=== PATIENT | female | born 1980 | race African-American/Black ===

== ENCOUNTER 2022-05-21 08:01 | Emergency (ER) | payer BC, SELFPAY | END 2022-05-21 09:02 | disposition home or self-care (01) | LOC: CSHERS 08:01 | DX: S93.402A Sprain of unspecified ligament of left ankle, initial encounter (principal); X50.1XXA Overexertion from prolonged static or awkward postures, initial encounter ==

== ENCOUNTER 2022-12-17 13:33 | Outpatient (CLI) | payer MEDICAID | END 2022-12-17 13:34 | disposition home or self-care (01) | LOC: CSHMAMMO 13:33 | PROVIDERS: ATTEND Nurse Practitioner Women's Health | DX: Z12.31 Encounter for screening mammogram for malignant neoplasm of breast (principal) | CPT/HCPCS: 77067 ==

== ENCOUNTER 2023-03-08 19:25 | Emergency (ER) | payer BC, MEDICAID ==
[2023-03-08] MEDS ORDERED: Ketorolac Tromethamine 30 MG/ML VIAL ONE (21:16)
== END 2023-03-08 22:15 | disposition home or self-care (01) ==
LOC: CSHERS 19:25
DX: R60.0 Localized edema (principal)
CPT/HCPCS: 96372; J1885

== ENCOUNTER 2023-04-16 08:53 | Emergency (ER) | payer BC, SELFPAY ==
[2023-04-16 09:36] LABS: Bilirubin Neg (Negative); Blood, Urine 25 (Negative); Glucose, Urine (Dipstick) Normal (Negative); Ketone, Urine Negative (Negative); Leukocyte 500 (Negative); Nitrite Negative (Negative); Protein, Urine (Dipstick) 15 mg/dl (Neg-Trace); Specific Gravity, Urine 1.015 (1.005-1.030); Urobilinogen Normal mg/dL (Less than 2); pH, Urine 6.5 (5.0-9.0)
[2023-04-16 09:37] LABS: Clarity Clear (Clear); Pregnancy Test - Urine (BHCG) Negative (Negative); Pregu Control Background? CLEAR/WHITE (CLR/WHITE); Pregu Control Bar Appear? YES (CONTROL BAR); Specific Gravity 1.015 (1.002-1.036)
[2023-04-16 09:41] LABS: #Monocytes 0.5 10x3/uL (0.0-1.1); #Neutrophils 3.6 10x3/uL (1.5-8.4); %Basophils 0.6 % (0.0-2.0); %Eosinophils 0.5 % (0.0-6.0); %Lymphocytes 32.3 % (18.0-47.0); %Monocytes 8.8 % (0.0-10.0); %Neutrophils 57.6 % (40.0-75.0); Hematocrit 35.2 % (34.9-44.5); Mean Corpuscular HGB CONC 34.1 g/dL (32.0-36.0); Mean Corpuscular Hemoglobin 28.8 pg (27.0-33.0); Mean Corpuscular Volume 84.6 fl (81.6-98.3); Mean Platelet Volume 11.2 fl (7.4-10.4); Platelet Count 235 10x3/uL (150-450); Red Blood Cell (RBC) Count 4.16 10x6/uL (3.90-5.03); White Blood Cell (WBC) Count 6.2 10x3/uL (3.5-10.5)
[2023-04-16 09:44] LABS: Bacteria/HPF 1+ HPF (None Seen); CAUTI Indications for Culture Pelvic or flank pain; RBC/HPF 0-3 HPF (0-3)
[2023-04-16 09:46] LABS: Urine Culture Reflex Yes Yes
[2023-04-16 09:53] LABS: ALT (SGPT) Less than 7 U/L (8-55); AST (SGOT) 15 U/L (5-34); Albumin 4.1 g/dL (3.5-5.0); Alkaline Phosphatase 53 U/L (40-110); Anion Gap 12 mmol/L (10-20); BUN (Urea Nitrogen) 8 mg/dL (7.0-18.7); Bilirubin, Total 0.9 mg/dL (0.2-1.2); Calc. Creatinine Clearance 0 mL/min (70-130); Calcium 8.9 mg/dL (7.8-10.44); Carbon Dioxide 24 mmol/L (22-29); Chloride 103 mmol/L (98-107); Estimated GFR 99; Globulin 3.1 g/dL (2.4-3.5); Glucose 89 mg/dL (70-105); Potassium 3.5 mmol/L (3.5-5.1); Protein, Total 7.2 g/dL (6.0-8.3); Sodium 135 mmol/L (136-145)
[2023-04-16] MEDS ORDERED: Ketorolac Tromethamine 30 MG (1 mL) VIAL ONE (09:56)
[2023-04-16] MEDS ORDERED: cefTRIAXone (ROCEPHIN) 1 GM VIAL ONE (11:11)
[2023-04-16] MEDS ORDERED: Iopamidol 300 61% 100 ML VIAL FS ONE (11:18)
== END 2023-04-16 11:55 | disposition home or self-care (01) ==
LOC: CSHERS 08:53
DX: N39.0 Urinary tract infection, site not specified (principal)
CPT/HCPCS: 74177; 80053; 81001; 81025; 85025; 87086; 96374; 96375; J0696; J1885; Q9967